=== PATIENT | male | born 1945 | race Caucasian/White ===

== ENCOUNTER → 2016-10-10 | Outpatient (CLI) | payer MEDICARE, OTHER ==
[~2016-10-10] MED LIST: ACET-461 PO; ACYC800T PO; ALFU10TA11 PO; ALLO300T2 PO; ALLP300T; ALLP300T PO; ALPR.25T PO; AML5T; AMLO10TA2 PO; AMLO10TA82 PO; ANTI14DR4 EACH EAR; BETH25TA PO; BETH25TA11 PO; BISA10SU12 PR; CALC625T29 PO; CARTEOLOL 1%; CEFD300C PO; CITA20TA7 PO; CPR250T; DIPH25TA27 PO; ETOD400T2 PO; FINA5TAB6 PO; HCT25T; HYDR25TA4 PO; HYDR50TA3 PO; IBUP-30 PO; LACT20SO2 PO; LINA290C PO; LORCET PO; LOSA50TA36 PO; MAGN-47 PO; NA P133E22 RC; NITR-65 PO; OMG1KC PO; OXYC-465 PO; POLY17PO23 PO; POLY1DRO2 OD; POTA10TA17 PO; POTASSIUM CIT; POTASSIUM CITRAT PO; PREG50CA2 PO; PROP10DR9 OU; SENN-20 PO; SODIUM CHLORIDE OU; TAMS0.4C2 PO; TIZA4TAB3 PO; TRAM50TA2 PO; [UNRECOGNIZED DRUG - CODE] OS; [UNRECOGNIZED DRUG - CODE] OS
--- OUTSIDE RECORDS SUMMARY | 2016-10-10 08:12 | XMS REPORT | Continuity of Care Document ---
Author Author [facility] Organization [facility] Address Unknown Phone Unavailable Care Team Providers Care Quarter Supervisor Name Role Phone CarynlizetRohit donahue PCP [phone] Source Comments Some departments are not documenting in the electronic medical record. If you do not see the information that you expected, contact Release of Information in the Health Information Management department at [phone] for further assistance in locating additional records.[facility] Active Allergies and Adverse Reactions Allergen Noted Date Severity Reactions Comments Ciprofloxacin 10/31/2013 MUSCLE PAIN Penicillins 10/31/2013 UNKNOWN Current Medications Prescription Sig. Disp. Refills Start End Date Status Date carteolol(+) (OCUPRESS) 1 Place 1 Drop into or Active % ophthalmic solution around eye(s) twice daily. amLODIPine (NORVASC) 10 Take 10 mg by mouth Active mg tablet daily. finasteride (PROSCAR) 5 Take 5 mg by mouth daily. Active mg tablet hydrochlorothiazide Take 25 mg by mouth Active (HYDRODIURIL) 25 mg daily. tablet allopurinol (ZYLOPRIM) Take 300 mg by mouth Active 300 mg tablet daily. other medication 1 Dose. potassium citrate Active 1080meq tid DOCOSAHEXANOIC ACID/EPA Take by mouth. Active (FISH OIL PO) sodium chloride(+) Place 1 Drop into or Active (BARBARA-5) 5 % ophthalmic around eye(s) every 3 solution hours. aspirin EC 81 mg tablet Take 81 mg by mouth Active daily. Active Problems Problem Noted Date Hypertension 10/31/2013 Constipation 10/31/2013 Social History Tobacco Use Types Packs/Day Years Used Date Never Smoker Alcohol Use Drinks/Week oz/Week Comments Yes Last Filed Vital Signs Vital Sign Reading Time Taken Blood Pressure 124/80 10/31/2013 1:27 PM CDT Pulse 65 10/31/2013 1:27 PM CDT Temperature 36.8 C (98.3 F) 10/31/2013 1:27 PM CDT Respiratory Rate 16 10/31/2013 1:27 PM CDT Height 1.88 m (6' 2") 10/31/2013 1:27 PM CDT Weight 99.156 kg (218 lb 9.6 oz) 10/31/2013 1:27 PM CDT Body Mass Index 28.05 10/31/2013 1:27 PM CDT Oxygen Saturation - - Plan of Care Health Maintenance Due Date Last Done Comments Physical (Comprehensive) 1952 Exam Pertussis Vaccine 1957 Tetanus Vaccine 11/12/1963 Colorectal Cancer 1996 Screening Shingles Vaccine 2006 Prevnar/Pneumovax (#1) 11/12/2011 Influenza Vaccine 03/31/2016 Results from Last 3 Months Not on file
--- NOTE | 2016-10-10 09:49 | Diagnostic Imaging Report ---
PROCEDURE: CT lumbar spine without contrast. TECHNIQUE: Multiple contiguous axial images were obtained through the lumbar spine without the use of intravenous contrast. Sagittal and coronal reformations were then performed. INDICATION: History of lumbar fusion. Bilateral lower extremity numbness. Left lower extremity weakness. Low back pain. COMPARISON: MRI lumbar spine without and with IV contrast 03/14/2016. Lumbar spine radiographs 03/18/2016. FINDINGS: There is grade 1 retrolisthesis of L2 on L3, L3 on L4 and L4 on L5. There is grade 1 anterolisthesis of L5 on S1. Alignment is unchanged since the prior exam. Vertebral body heights are maintained. No fractures. Moderate to advanced degenerative endplate changes at L1-L4, including multiple Schmorl's nodes, have not appreciably changed since the prior MRI exam. There are postoperative findings of bilateral mitch and pedicle screw fixation with interbody devices and laminectomies at L4-S1. The right L4 pedicle screw is parapedicular. Hardware components appear intact. No evidence of loosening. Arterial calcifications including aortic. The visualized paravertebral soft tissues are otherwise unremarkable. L1-L2: No substantial spinal canal narrowing. Disc space height loss and facet arthropathy contribute to moderate bilateral neural foraminal narrowing. L2-L3: The retrolisthesis and posterior disc osteophyte complex results in at least mild spinal canal narrowing on this noncontrast exam. Disc space height loss and facet arthropathy contribute to advanced right and moderate left neural foraminal narrowing. L3-L4: The retrolisthesis, ligamentous hypertrophy and posterior disc osteophyte complex results in at least moderate spinal canal narrowing on this noncontrast exam. Disc space height loss and facet arthropathy result in advanced right and moderate left neural foraminal narrowing. L4-L5: The spinal canal is decompressed well. Disc space height loss and facet arthropathy contribute to advanced right and moderate left neural foraminal narrowing. L5-S1: The spinal canal is decompressed well. Disc space height loss and facet arthropathy contribute to moderate bilateral neural foraminal narrowing. IMPRESSION: 1. Interval postoperative changes of bilateral mitch and pedicle screw fixation with interbody devices and laminectomies at L4-S1. No evidence of hardware failure. Stable lumbar spine alignment. 2. Spondylotic changes result in at least mild to moderate spinal canal narrowing at L2-L3 and L3-L4 on this noncontrast exam. This could be better evaluated with MRI or CT myelogram. 3. Multilevel moderate and advanced neural foraminal narrowing detailed above. Dictated by: Dictated on workstation # [id number]
== END ==
LOC: RAD 08:09
PROVIDERS: ATTEND Orthopaedic Surgery Orthopaedic Surgery of the Spine
DX: Z98.1 Arthrodesis status (principal)
CPT/HCPCS: 72131

== ENCOUNTER → 2017-04-10 | Outpatient (CLI) | payer MEDICARE, OTHER ==
--- NOTE | 2017-04-10 13:27 | Diagnostic Imaging Report ---
PROCEDURE: CT lumbar spine without contrast. TECHNIQUE: Multiple contiguous axial images were obtained through the lumbar spine without the use of intravenous contrast. Sagittal and coronal reformations were then performed. INDICATION: Surveillance imaging status post discectomy and posterior decompression of L4-L5 and L5-S1. COMPARISON: 10/10/2016. FINDINGS: Surgical changes from discectomies of L4-L5 and L5-S1. The interbody bone cages are in appropriate position. Early interosseous incorporation of the bone graft material with the adjacent vertebral bodies is noted along the posterior aspect of the cages at both levels. Posterior instrumented fusion utilizing paired transpedicular screws and vertical spanning rods from L4-S1. Hardware is intact, and there is no evidence of loosening. Laminectomy of L5 is unchanged. Increased osseous incorporation of the bone graft along the right posterior elements. However, the new hypertrophic incorporated bone does not narrow the spinal canal or neural foramen. Vertebral bodies are normal in height without fracture. Multilevel degenerative disc disease in the upper lumbar spine is unchanged. This remains greatest at L2-L3. Large Schmorl's node involving the superior endplate of L1 is also unchanged. By non-myelogram imaging, there is no evidence of new high-grade spinal stenosis or foraminal narrowing. SI joints are stable with mild degenerative changes. No abnormality of the paravertebral musculature. Atherosclerotic calcifications of the aorta are noted. IMPRESSION: 1. Early osseous incorporation of the interbody bone graft at L4-L5 and L5-S1. 2. No hardware complication of the posterior instrumented fixation from L4-S1. Dictated by: Dictated on workstation # [id number]
== END ==
LOC: RAD 09:20
PROVIDERS: ATTEND Orthopaedic Surgery Orthopaedic Surgery of the Spine
DX: Z98.1 Arthrodesis status (principal)
CPT/HCPCS: 72131

== ENCOUNTER → 2018-10-16 | Outpatient (CLI) | payer MEDICARE, OTHER ==
[~2018-10-16] MED LIST changes: -AMLO10TA2 PO; +AMLO10TA7 PO; +CART5DRO OS; -CITA20TA7 PO; +CITA20TA9 PO; -LOSA50TA36 PO; +LOSA50TA63 PO; -POLY17PO23 PO; +POLY17PO31 PO; -[UNRECOGNIZED DRUG - CODE] OS
--- NOTE | 2018-10-16 08:49 | Diagnostic Imaging Report ---
PROCEDURE: MRI lumbar spine. TECHNIQUE: Multiplanar, multisequence MRI of the lumbar spine was performed without contrast. INDICATION: Back pain. Comparison made with prior examination 03/14/2016. FINDINGS: There are postsurgical changes of posterior lumbar instrumentation from L4 through S1 with bilateral pedicle screws and rods. Intervertebral disc spaces are seen in both the L4-L5 and L5-S1 disc space. The lumbar vertebral body heights are well-maintained. There is no spondylolysis or spondylolisthesis. No fractures are identified. Conus medullaris is seen at L1 is normal in appearance. T12-L1 disc is unremarkable. At L1-L2, there is loss of disc height and signal intensity. There is broad-based annular bulging facet disease and thickening of ligament flavum. There is mild central spinal stenosis with encroachment up on the lateral recess bilaterally right greater than left. There is moderate right and mild left neural foramen encroachment. At L2-L3, there is loss of disc height and signal intensity. There are degenerative changes in the endplates. There is broad-based annular bulging more prominent on the left paramedian distribution. There is facet disease and thickening of the ligamentum flavum. There is qzzgksqu-yw-vjnvjn central spinal stenosis with severe encroachment up on left lateral recess. There is moderate bilateral neural foramen encroachment. At L3-L4, there is broad-based annular bulging and facet disease and thickening of ligament flavum. There are Modic changes in the endplates. There is facet disease and thickening of ligament flavum. There is adtkchvk-wk-akiqjk central spinal stenosis with encroachment up on the lateral recess bilaterally left greater than right. There is moderate bilateral neural foramen encroachment. At L4-L5, the spinal canal is adequately decompressed. There are Modic changes in the endplates. There is persistent mild right neural foraminal encroachment. At L5-S1, spinal canal is decompressed. There are Modic changes in the endplates. There is persistent mild bilateral neural foramen encroachment. Abdominal aorta is nonaneurysmal. There are bilateral renal cysts. IMPRESSION: Extensive lumbar spondylosis and multilevel degenerative disc disease as detailed above. Additionally, there are post surgical changes and L4 through S1 fusion. Dictated by: Dictated on workstation # [id number]
== END ==
LOC: RAD 07:42
PROVIDERS: ATTEND Physician Assistant
DX: M48.061 Spinal stenosis, lumbar region without neurogenic claudication (principal); M51.26 Other intervertebral disc displacement, lumbar region; M47.816 Spondylosis without myelopathy or radiculopathy, lumbar region; M47.817 Spondylosis without myelopathy or radiculopathy, lumbosacral region; M99.73 Connective tissue and disc stenosis of intervertebral foramina of lumbar region; Z98.1 Arthrodesis status
CPT/HCPCS: 72148

== ENCOUNTER → 2020-03-12 | Outpatient (CLI) | payer MEDICARE, OTHER ==
[~2020-03-12] VITALS: Ht 187 cm; Wt 100.0 kg
[~2020-03-12] MED LIST changes: -ALFU10TA11 PO; +ALFU10TA12 PO; +REGADENOSON 0.4 MG/5 ML SYR (LEXISCAN) IV ONE; -TIZA4TAB3 PO; +TIZA4TAB4 PO
[2020-03-12] MEDS: CATHETER FLUSH 10 ML SYR IV PRN ×2 (08:21→09:17)
[2020-03-12 09:16] VITALS: BP 126/70
--- NOTE | 2020-03-12 17:36 | Cardiology Stress Test Report ---
Stress Test Report Type of NM Stress Test: Test Type: LEXISCAN 0.4MG/5ML Date of Procedure/Referring: Date of Procedure: Mar 12, 2020 PCP Enedina Francis Aprn Admitting Physician Rohit Aj MD Indications: Chest pain Baseline Heart Rate: 50 Baseline Blood Pressure: Blood Pressure Systolic: 126 Blood Pressure Diastolic: 70 Baseline EKG: Baseline EKG: Sinus rhythm Summary & Conclusion: Summary: The patient was brought to the stress lab after informed consent was taken. Stress test was performed according to the Lexiscan protocol. 0.4 mg of IV Lexiscan was given. Low-grade exercise was performed. Baseline EKG showed sinus rhythm at 50 BPM. Initial blood pressure was 158/77 mmHg. Maximum heart rate was 64 bpm and blood pressure 144/74 mmHg. Patient did not have any chest pain, arrhythmias or ST segment changes during the stress test. 10.95 mCi of Myoview were given for rest imaging and 32.7 mCi of Myoview given for stress imaging. Transient ischemic dilatation score 1.12, EF 63 percent. Normal wall motion. Normal myocardial perfusion imaging during rest and stress. Conclusion: Pharmacological stress test was negative for ischemia. Normal LV function with no wall motion abnormalities. Normal myocardial perfusion imaging during rest and stress. Kevin HOPPER MD Mar 12, 2020 17:35
== END ==
LOC: CARD 07:58
PROVIDERS: ATTEND Nurse Practitioner Family
DX: R07.89 Other chest pain (principal)
CPT/HCPCS: 78452; 93017; A9502

== ENCOUNTER → 2021-01-06 | Outpatient (CLI) | payer MEDICARE, OTHER ==
[~2021-01-06] MED LIST changes: +AMLO-251 PO; -AMLO10TA7 PO; +GADOBUTROL 10 MMOL/10 ML (GADAVIST) VIAL IV ONE; -OXYC-465 PO; +OXYC-556 PO; -POLY17PO31 PO; +POLY17PO54 PO; -REGADENOSON 0.4 MG/5 ML SYR (LEXISCAN) IV ONE
--- NOTE | 2021-01-06 19:02 | Diagnostic Imaging Report ---
PROCEDURE: MR imaging of the brain with and without contrast. TECHNIQUE: Multiplanar, multisequence MR imaging of the brain was performed with and without contrast. INDICATION: Headaches There are no prior studies available for comparison. There is no mass, shift of the midline or hemorrhage to suggest an acute intracranial abnormality. There is no abnormal signal arising from the brain on the diffusion series to indicate an area of acute ischemia either. Furthermore, there is no abnormal enhancement on the postcontrast sequence to suggest neoplastic or infectious process. The ventricles are not abnormally dilated. There are few tiny areas of slight increased signal in the periventricular white matter bilaterally on the FLAIR series. These are nonspecific but may be related to encephalomalacia from microvascular ischemia. There is also mild cortical atrophy. The sella is not enlarged and the expected carotid flow voids are evident bilaterally. There is no acute abnormality of the orbits. However, the lens of the left globe is not visualized. There is also a vague area of slightly diminished signal within the vitreous of the left globe on the T2 propeller series. This is of uncertain etiology. If there is clinical concern regarding a retinal detachment, then correlation with patient's ophthalmologic exam would be recommended. The sinuses are generally clear although there is a 15 mm retention cyst in the floor of the left maxillary antrum. The 7th and 8th nerve complexes are unremarkable. IMPRESSION: 1. There is no evidence for an acute intracranial abnormality. In particular, there is no sign of an area of acute ischemia on the diffusion series. 2. There is no abnormal enhancement on the postcontrast series to suggest a neoplastic or infectious process. 3. The lens of the left globe is not visualized. The vague area of altered signal within the vitreous of the left globe is of uncertain etiology. Recommendations as above. Dictated by: Dictated on workstation # [id number]
== END ==
LOC: RAD 14:45
DX: R41.82 Altered mental status, unspecified (principal); R51.9 Headache, unspecified
CPT/HCPCS: 70553

== ENCOUNTER 2021-01-15 13:39 | Emergency (ER) | payer MEDICARE, OTHER ==
[~2021-01-15] VITALS: Ht 180 cm; Wt 90.0 kg
[~2021-01-15 13:39] MED LIST changes: +CART5DRO OP; +DOCU-163 PO; +FLUT9.9S NS; -GADOBUTROL 10 MMOL/10 ML (GADAVIST) VIAL IV ONE; +HYDR28.480 TP; +LORA-877 PO; +MAGN400O7 PO; +MECL-149 PO; +NAPR-1070 PO; +OMEG-158 PO; +ONDA8TAB13 PO; +POLY17PO6 PO; +ROSU10TA28 PO; +SILD100T67 PO; +TMSL.4C PO
--- NOTE | 2021-01-15 14:37 | Diagnostic Imaging Report ---
PATIENT HISTORY: SOA. TECHNIQUE: Single frontal view of the chest. COMPARISON: 04/16/2007 FINDINGS: The lung volumes are normal. No focal consolidation is seen. No large pleural effusion or pneumothorax is seen. The cardiomediastinal silhouette is normal in size and contour. No acute osseous abnormality is seen. There are degenerative changes in the AC joints bilaterally IMPRESSION: No acute pulmonary abnormality seen. Dictated by: Dictated on workstation # [id number]
[2021-01-15 14:42] LABS: MAGNESIUM 2.3 MG/DL (1.6-2.4)
[2021-01-15 15:02] LABS: TSH (THYROID ANALYZER) 0.87 UIU/ML (0.35-4.94)
--- NOTE | 2021-01-15 16:06 | ED General ---
General Chief Complaint: Dizziness/Syncope Stated Complaint: DIZZINESS/ WEAKNESS Nursing Triage Note: THE PT IS AMBULATORY TO THE ROOM WITHOUT DIFFICULTY. NO DISTRESS IS SEEN ON ARRIVAL. LOC IS NORMAL FOR THE PT. THE PT C/O OF WEAKNESS AND DIZZINESS. Nursing Sepsis Screen: No Definite Risk Source of Information: Patient, Old Records Exam Limitations: No Limitations History of Present Illness Date Seen by Provider: Jan 15, 2021 Time Seen by Provider: 13:43 Initial Comments This 75-year-old gentleman was referred to the emergency room from [facility] where he was found to have an abnormal EKG with a heart rate in the 40s. Patient has been feeling weak and lightheaded with increasing intensity over the last 5 to 7 days. He generally feels pretty well lying down but has worsening of symptoms when he gets up, especially if he starts exerting himself. He denies any chest pain or cough. He does have some shortness of breath. No fever. He did note a recent change in taste. He has lost about 25 pounds in the last couple of months. He states a feeling of dizziness described as both a spinning sensation and lightheadedness over the past 3 weeks. He has had both Covid vaccinations. He was noted to have lower blood pressures at urgent care with reported blood pressures of 97/70 at home and 114/80 at urgent care. Heart rate was in the 45-50 range. He received about 1.5 L in fluid boluses at urgent care. He states this did not really help him feel better but it did make him urinate more. Patient reports his blood pressures have been lower in the clinic and his amlodipine dose was therefore halved. Dr. Melgoza is his primary care provider. MRI of the brain did not show any abnormalities to explain his symptoms. Patient was recently treated with steroids and antibiotics for kishor pected inner ear infection. He denies any recent alcohol use or any drug use. Labs performed at urgent care were notable for creatinine of 1.3, BUN of 29, and GFR 55. Allergies and Home Medications Allergies Coded Allergies: Penicillins (Verified Allergy, Unknown, 04/25/07) ciprofloxacin (Unverified Allergy, Unknown, 03/14/16) ciprofloxacin HCl (Unverified Allergy, Unknown, 03/14/16) Home Medications Alfuzosin HCl 10 Mg Tab.er.24h, 10 MG PO DAILY@1800 Prescribed by: NAMAN AREVALO on 03/25/16 1053 Allopurinol 300 Mg Tablet, 300 MG PO DAILY, (Reported) Amlodipine Besylate 10 Mg Tablet, 10 MG PO DAILY, (Reported) Calcium Polycarbophil 625 Mg Tablet, 625 MG PO BID, (Reported) Carteolol HCl 5 Ml Drops, 5 ML OP BID, (Reported) Docusate Sodium 100 Mg Capsule, 100 MG PO DAILY PRN, (Reported) Finasteride 5 Mg Tablet, 5 MG PO DAILY, (Reported) Fluticasone Propionate 9.9 Ml [place].susp, 1 SPRAY NS DAILY, (Reported) 1 SPRAY EACH NARE DAILY Hydrochlorothiazide 25 Mg Tablet, 25 MG PO DAILY, (Reported) Hydrocortisone/Aloe Vera 28.4 Gm Cream..g., 2.5 % TP DAILY PRN for RASH, (Reported) Loratadine/Pseudoephedrine 1 Each Tab.er.24h, 1 EACH PO DAILY, (Reported) Magnesium Hydroxide 400 Mg/5 Ml Oral.susp, 400 MG PO for CONSTIPATION, (Reported) Meclizine HCl 25 Mg Tablet, 25 MG PO TID, (Reported) Naproxen Sodium 550 Mg Tablet, 550 MG PO BID, (Reported) Rarden 3 Polyunsat Fatty Acids 1,000 Mg Cap, 1,000 MG PO TID, (Reported) Rarden-3/Dha/Epa/Fish Oil 1 Each Capsule.dr, 1 EACH PO TID, (Reported) Ondansetron 8 Mg Tab.rapdis, 8 MG PO for Q 6-8 HRS, (Reported) Polyethylene Glycol 3350 17 Gm Powd.pack, 17 GM PO DAILY PRN for CONSTIPATION, (Reported) Potassium Citrate 10 Meq Tablet.er, 10 MEQ PO TID, (Reported) Propylene Glycol 10 Ml Drops, 1-2 DROPS OU Q4H PRN for DRY EYES, (Reported) Rosuvastatin Calcium 10 Mg Tablet, 10 MG PO DAILY, (Reported) Sildenafil Citrate 100 Mg Tablet, 100 MG PO 1-2 HOURS PRN PRN for PRE SEX , (Reported) Tamsulosin HCl 0.4 Mg Cap, 0.4 MG PO DAILY, (Reported) Patient Home Medication List Home Medication List Reviewed: Yes Review of Systems Review of Systems Constitutional: see HPI EENTM: no symptoms reported Respiratory: see HPI Cardiovascular: see HPI Gastrointestinal: no symptoms reported Genitourinary: no symptoms reported Musculoskeletal: no symptoms reported Skin: no symptoms reported Psychiatric/Neurological: No Symptoms Reported Hematologic/Lymphatic: No Symptoms Reported Immunological/Allergic: no symptoms reported Past Jggbexq-Szjbwk-Dhikyu Hx Past Med/Social Hx: Reviewed Nursing Past Med/Soc Hx Patient Social History Recent Infectious Disease Expo: No Recent Hopitalizations: No Immunizations Up To Date Tetanus Booster (TDap): Less than 5yrs Date of Influenza Vaccine: Apr 14, 2020 Seasonal Allergies Seasonal Allergies: No Past Medical History Surgeries: Yes (S/P L4-S1 SACRAL FUSION, ACHILLES TENDON, LEFT EYE X3, NERVE REMOVED L FOOT) Tonsillectomy, Vasectomy Respiratory: No Cardiac: Yes (Rheumatic fever as a child) High Cholesterol, Hypertension Neurological: No Reproductive Disorders: No Sexually Transmitted Disease: No Genitourinary: Yes Prostate Problems, Kidney Stones Gastrointestinal: Yes Chronic Constipation Musculoskeletal: Yes (Spinal stenosis) Endocrine: No Cancer: No Psychosocial: No Integumentary: No Herpes Blood Disorders: No Adverse Reaction/Blood Tranf: No Family Medical History Cancer 03 FATHER, Onset:92 Family history: Arthritis 03 FATHER Family history: Diabetes mellitus 03 FATHER Family history: Hypertension 03 FATHER Physical Exam Vital Signs Vital Signs - First Documented 01/15/21 01/15/21 13:57 19:14 Temp 36.5 Pulse 54 Resp 16 B/P (MAP) 200/90 (126) Pulse Ox 98 Capillary Refill : Less Than 3 Seconds Height, Weight, BMI Height: 6'2.00" Weight: 210lbs. 9.0oz. 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 Norm as Tested Skin: Normal Color, Warm/Dry Progress/Results/Core Measures Suspected Sepsis Recent Fever Within 48 Hours: No Infection Criteria Present: None New/Unexplained Altered Menta: No Sepsis Screen: No Definite Risk SIRS Temperature: Pulse: 54 Respiratory Rate: 16 Blood Pressure 200 /90 Mean: 126 Results/Orders Lab Results Laboratory Tests Test 01/15/21 14:20 01/15/21 16:25 Range/Units Magnesium Level 2.3 1.6-2.4 MG/DL Troponin I < 0.028 <0.028 NG/ML B-Type Natriuretic Peptide 73.3 <100.0 PG/ML TSH [place] Testing 0.87 0.35-4.94 UIU/ML Influenza Type A (RT-PCR) Not Detected Not Detecte Influenza Type B (RT-PCR) Not Detected Not Detecte SARS-CoV-2 RNA (RT-PCR) Not Detected Not Detecte Urine Color YELLOW Urine Clarity CLEAR Urine pH 7.0 5-9 Urine Specific [place] 1.015 L 1.016-1.022 Urine Protein NEGATIVE NEGATIVE Urine Glucose (UA) NEGATIVE NEGATIVE Urine Ketones TRACE H NEGATIVE Urine Nitrite NEGATIVE NEGATIVE Urine Bilirubin NEGATIVE NEGATIVE Urine Urobilinogen 0.2 < = 1.0 MG/DL Urine Leukocyte Esterase NEGATIVE NEGATIVE Urine RBC (Auto) NEGATIVE NEGATIVE Urine RBC NONE /HPF Urine WBC NONE /HPF Urine Crystals NONE /LPF Urine Bacteria NEGATIVE /HPF Urine Casts NONE /LPF Urine Mucus NEGATIVE /LPF Urine Culture Indicated NO My Orders Orders - JULES GROVER MD BNP (01/15/21 14:07) Magnesium (01/15/21 14:07) Thyroid Analyzer (01/15/21 14:07) Troponin I (01/15/21 14:07) Chest 1 View, Ap/Pa Only (01/15/21 14:07) Covid 19 Inhouse Test (01/15/21 14:07) Influenza A And B By Pcr (01/15/21 14:07) Ekg Tracing (01/15/21 14:07) Monitor-Rhythm Ecg Trace Only (01/15/21 14:07) Ct Angio Head/Neck (01/15/21 16:03) Ua Culture If Indicated (01/15/21 16:22) Iohexol Injection (Omnipaque 350 Mg/Ml 1 (01/15/21 16:45) Received Contrast (Hold Metformin- Contr (01/15/21 16:45) Ns (Ivpb) (Sodium Chloride 0.9% Ivpb Bag (01/15/21 16:45) Lactated Ringers (Lr 1000 Ml Iv Solution (01/15/21 18:00) Medications Given in ED Current Medications Medications Dose Ordered Sig/Caryn Route Start Time Stop Time Status Last Admin Dose Admin Iohexol 100 ml ONCE ONCE IV 01/15/21 16:45 01/15/21 16:46 DC 01/15/21 17:08 75 ML Lactated Ringer's 1,000 ml @ 0 mls/hr Q0M ONCE IV 01/15/21 18:00 01/15/21 18:01 DC 01/15/21 18:12 1,000 MLS/HR Sodium Chloride 100 ml ONCE ONCE IV 01/15/21 16:45 01/15/21 16:46 DC 01/15/21 17:09 80 ML Vital Signs/I&O 01/15/21 01/15/21 01/15/21 13:57 19:14 19:31 Temp 36.5 36.6 Pulse 54 64 65 Resp 16 16 16 B/P (MAP) 200/90 (126) 126/72 126/60 Pulse Ox 98 98 Capillary Refill : Less Than 3 Seconds Blood Pressure Mean: 126 Progress Note : Progress Note During my assessment orthostatic blood pressures were taken as follows: Lying 178/78, heart rate 50 sitting 139/76, heart rate 63 Standing 123/67, heart rate 77 These measurements note a significant orthostatic change. This was present even despite receiving the fluid bolus at urgent care. Work-up was pursued which was largely unremarkable. Heart rate varied from the upper 40s through the 70s. He seemed to have an inappropriate lack of response with heart rate during sitting or standing. Blood pressures on arrival were 196/110 and 199/90. Patient admitted to increased symptoms with sitting up or standing. He did not have any chest pain. COVID-19 and flu testing were negative. CT angiogram of the head and neck was obtained to rule out stenosis of the vessels of the neck or head. No significant abnormalities were identified. I reviewed medications with him in detail and looked up adverse reactions of his active medications. After this review I advised him to discontinue Flomax through the weekend as a trial. Before departure patient received another liter of IV fluid. This made him urinate a significant amount but did not improve his symptoms or his standing blood pressure. Case was discussed with Dr. Stratton. Patient feels comfortable returning home and continuing work-up as an outpatient. See discharge instructions. ECG Initial ECG Impression Date: Jan 15, 2021 Initial ECG Impression Time: 14:14 Initial ECG Rate: 48 Initial ECG Rhythm: S.Brandon Comment Sinus bradycardia with no ST elevation or depression. No abnormal intervals or axis deviation. Diagnostic Imaging Diagonstic Imaging: CT Plain Films/CT/US/NM/MRI: other (Angiogram head and neck) Comments NAME: JANENE LEGGETT [facility] REC#: [id number] PT STATUS: REG ER : 1945 PHYSICIAN: JULES GROVER MD ADMIT DATE: 01/15/21/ER Signed Date of Exam:01/15/21 CT ANGIO HEAD/NECK PROCEDURE: CT angiography of the head and CT angiography of the neck with and without contrast. TECHNIQUE: Contiguous noncontrast images were obtained from the skull base through the vertex. After intravenous contrast administration, helical CT angiography of the neck was performed. Source data was reformatted into 3D MIP projections. Delayed post contrast acquisition was also obtained. Auto Exposure Controls were utilized during the CT exam to meet ALARA standards for radiation dose reduction. INDICATION: Lightheaded. Dizziness. COMPARISON: MRI brain without and with IV contrast from 01/06/2021. FINDINGS: Noncontrast head CT demonstrates no intracranial hemorrhage, mass effect, hydrocephalus, or extra-axial fluid collections. No CT evidence of a territorial infarction. No abnormal intracranial enhancement on delayed post contrast imaging. CTA demonstrates conventional aortic arch. The basilar, bilateral vertebral, common carotid, internal carotid, anterior cerebral, middle cerebral, and posterior cerebral arteries are widely patent without evidence of aneurysm or dissection. The dural venous sinuses are normally opacified. No acute osseous findings. Mild spondylotic changes in the cervical spine. Mild mucosal thickening in the left maxillary sinus. The mastoids are unremarkable. Paravertebral soft tissues are unremarkable. Lung apices are clear. IMPRESSION: 1. No acute intracranial CT findings. 2. No high-grade narrowing, aneurysm, or dissection involving the major arteries in the head and neck. No large vessel occlusion. Dictated by: Dictated on workstation # [id number] Dict: 01/15/21 1704 Trans: 01/15/21 1736 [id number] Interpreted by: JESSICA ARELLANO MD Electronically signed by: JESSICA ARELLANO MD 01/15/21 1736 Reviewed: Reviewed by Me Diagonstic Imaging: Xray Plain Films/CT/US/NM/MRI: chest Comments NAME: JANENE LEGGETT [facility] REC#: [id number] PT STATUS: REG ER : 1945 PHYSICIAN: JULES GROVER MD ADMIT DATE: 01/15/21/ER Signed Date of Exam:01/15/21 CHEST 1 VIEW, AP/PA ONLY PATIENT HISTORY: SOA. TECHNIQUE: Single frontal view of the chest. COMPARISON: 04/16/2007 FINDINGS: The lung volumes are normal. No focal consolidation is seen. No large pleural effusion or pneumothorax is seen. The cardiomediastinal silhouette is normal in size and contour. No acute osseous abnormality is seen. There are degenerative changes in the AC joints bilaterally IMPRESSION: No acute pulmonary abnormality seen. Dictated by: Dictated on workstation # [id number] Dict: 01/15/21 1431 Trans: 01/15/21 1642 [facility] [id number] Interpreted by: SHANE STORM MD Electronically signed by: SHANE STORM MD 01/15/21 1642 Departure Impression Primary Impression: Bradycardia Additional Impression: Orthostatic headache Disposition: 01 HOME, SELF-CARE Condition: Stable Departure-Patient Inst. Decision time for Depature: 19:20 Referrals: ROBERT MORGAN MD, RICK D MD (PCP/Family) Primary Care Physician Patient Instructions: Orthostatic Hypotension Add. Discharge Instructions: Follow-up with Dr. Morgan or the rolling mill plugger of your choice as soon as possible. Please call Monday to make an appointment. In the meantime, continue your medications, but consider stopping Flomax through the weekend. It is possible you are experiencing an adverse reaction to one of your medications. Get up and walk very carefully to prevent falls. Consider using an assistive device such as a cane or walker to give you support. Call with questions or concerns. Return to the ER if you have worsening symptoms. All discharge instructions reviewed with patient and/or family. Voiced u nderstanding. Copy Copies To 1: MOOK MELGOZA MD Copies To 2: ROBERT MORGAN MD; RYAN CARRANZA MD, JOSHUA T MD Jan 15, 2021 16:06
[2021-01-15 16:35] LABS: BILIRUBIN,URINE NEGATIVE (NEGATIVE); CLARITY,URINE CLEAR; COLOR,URINE YELLOW; GLUCOSE, URINE (UA) NEGATIVE (NEGATIVE); KETONES,URINE TRACE (NEGATIVE); LEUKOCYTE ESTERASE ,URINE NEGATIVE (NEGATIVE); NITRITE,URINE NEGATIVE (NEGATIVE); PROTEIN,URINE NEGATIVE (NEGATIVE)
[2021-01-15 16:38] LABS: BACTERIA,URINE NEGATIVE /HPF
[2021-01-15] MEDS ORDERED: HOLD METFORMIN - RECEIVED CONTRAST 20 ML VIAL IV SCH (16:45)
[2021-01-15] MEDS ORDERED: NS 100 ML (IVPB) BAG IV ONE (16:45)
[2021-01-15] MEDS ORDERED: IOHEXOL 350 MG/ML 100 ML (OMNIPAQUE 350) VIAL IV ONE (16:45)
--- NOTE | 2021-01-15 17:17 | Diagnostic Imaging Report ---
PROCEDURE: CT angiography of the head and CT angiography of the neck with and without contrast. TECHNIQUE: Contiguous noncontrast images were obtained from the skull base through the vertex. After intravenous contrast administration, helical CT angiography of the neck was performed. Source data was reformatted into 3D MIP projections. Delayed post contrast acquisition was also obtained. Auto Exposure Controls were utilized during the CT exam to meet ALARA standards for radiation dose reduction. INDICATION: Lightheaded. Dizziness. COMPARISON: MRI brain without and with IV contrast from 01/06/2021. FINDINGS: Noncontrast head CT demonstrates no intracranial hemorrhage, mass effect, hydrocephalus, or extra-axial fluid collections. No CT evidence of a territorial infarction. No abnormal intracranial enhancement on delayed post contrast imaging. CTA demonstrates conventional aortic arch. The basilar, bilateral vertebral, common carotid, internal carotid, anterior cerebral, middle cerebral, and posterior cerebral arteries are widely patent without evidence of aneurysm or dissection. The dural venous sinuses are normally opacified. No acute osseous findings. Mild spondylotic changes in the cervical spine. Mild mucosal thickening in the left maxillary sinus. The mastoids are unremarkable. Paravertebral soft tissues are unremarkable. Lung apices are clear. IMPRESSION: 1. No acute intracranial CT findings. 2. No high-grade narrowing, aneurysm, or dissection involving the major arteries in the head and neck. No large vessel occlusion. Dictated by: Dictated on workstation # [id number]
[2021-01-15] MEDS ORDERED: LACTATED RINGERS 1,000 ML IV ONE (18:00)
[2021-01-15 19:31] VITALS: BP 126/60
== END 2021-01-15 19:33 | disposition home or self-care (01) ==
LOC: EDUNIT# 13:39 → ER 13:43
DX: R00.1 Bradycardia, unspecified (principal); R51.9 Headache, unspecified; I10 Essential (primary) hypertension; E78.00 Pure hypercholesterolemia, unspecified; Z20.822 Contact with and (suspected) exposure to COVID-19; Z79.899 Other long term (current) drug therapy
CPT/HCPCS: 36415; 70496; 70498; 71045; 81000; 83735; 83880; 84443; 84484; 87636; 93005; 93041

== ENCOUNTER 2021-01-18 05:29 | Outpatient (RCR) | payer MEDICARE, OTHER ==
[~2021-01-18] VITALS: Ht 188 cm; Wt 89.5 kg
== END 2021-01-18 08:16 | disposition home or self-care (01) ==
LOC: PREOP 05:29
PROVIDERS: ATTEND Surgery
DX: Z01.812 Encounter for preprocedural laboratory examination (principal); K59.00 Constipation, unspecified; R63.4 Abnormal weight loss; Z20.822 Contact with and (suspected) exposure to COVID-19; Z86.010 Personal history of colon polyps
CPT/HCPCS: 87635

== ENCOUNTER → 2021-01-25 | Outpatient (CLI) | payer MEDICARE, OTHER ==
[~2021-01-25] MED LIST changes: +CATHETER FLUSH 10 ML SYR IV PRN; +HOLD METFORMIN - RECEIVED CONTRAST 20 ML VIAL IV SCH; +IOHEXOL 350 MG/ML 100 ML (OMNIPAQUE 350) VIAL IV ONE; +NS 100 ML (IVPB) BAG IV ONE
--- NOTE | 2021-01-25 09:38 | Diagnostic Imaging Report ---
INDICATION: Weight loss COMPARISON: 01/15/2021. FINDINGS: Frontal and lateral views the chest demonstrate clear lungs bilaterally. The heart size is normal. There is no pneumothorax. Osseous structures are normal. IMPRESSION: No acute findings. Normal chest. Dictated by: Dictated on workstation # [id number]
--- NOTE | 2021-01-25 10:02 | Diagnostic Imaging Report ---
PROCEDURE: CT abdomen and pelvis with contrast. TECHNIQUE: Multiple contiguous axial images were obtained through the abdomen and pelvis after administration of intravenous contrast. Auto Exposure Controls were utilized during the CT exam to meet ALARA standards for radiation dose reduction. All CT scans use one or more of the following dose optimizing techniques: automated exposure control, MA and/or KvP adjustment based on patient size and exam type or iterative reconstruction. INDICATION: Dizziness and fatigue COMPARISON: 09/05/2011 Calcified granulomas are seen in the left lung base and within the spleen. No focal hepatic lesion is identified apart from occasional calcified granulomas. The gallbladder, biliary tree and pancreas are stable and unremarkable. There is no evidence of adrenal gland lesion. There are dominant parapelvic cysts within both kidneys however no hydronephrosis is identified. There is no nodes of hydroureter. No free fluid is seen within the abdomen or pelvis. The appendix has a normal appearance. There is mild atherosclerotic calcification of the abdominal aorta without evidence of pathologically enlarged abdominal or pelvic adenopathy. Partially opacified urinary bladder is unremarkable. There are advanced urinary findings in the lumbar spine with posterior fusion extending from L4 through S1. IMPRESSION: No definite acute abnormality or adverse change. Dictated by: Dictated on workstation # [id number]
== END ==
LOC: RAD 08:45
DX: F41.8 Other specified anxiety disorders (principal); R63.4 Abnormal weight loss; R42 Dizziness and giddiness
CPT/HCPCS: 71046; 74177

== ENCOUNTER 2021-01-31 03:56 | Emergency (ER) | payer MEDICARE ==
[~2021-01-31] VITALS: Ht 180 cm; Wt 90.0 kg
[~2021-01-31 03:56] MED LIST changes: -CATHETER FLUSH 10 ML SYR IV PRN; -HOLD METFORMIN - RECEIVED CONTRAST 20 ML VIAL IV SCH; -IOHEXOL 350 MG/ML 100 ML (OMNIPAQUE 350) VIAL IV ONE; -NS 100 ML (IVPB) BAG IV ONE
[2021-01-31 04:16] VITALS: BP 170/94
--- NOTE | 2021-01-31 04:29 | ED GU-Female ---
General Chief Complaint: - Urinary Stated Complaint: UNABLE TO URINATE,CONSTIPATION Nursing Triage Note: UNABLE TO VOID X12 HRS, CONSTIPATION X12 DAYS. Source: patient Exam Limitations: no limitations History of Present Illness Date Seen by Provider: Jan 31, 2021 Time Seen by Provider: 04:02 Initial Comments Patient to the ER by private conveyance with significant other and chief complaint that he is not been able to urinate for the past 12 hours. He has passed normal bowel movements. He is having increasing pressure and pain in his suprapubic region. He has prostate issues known to Dr. Carranza, urology on finasteride and Flomax. No blood thinners. Allergies and Home Medications Allergies Coded Allergies: Penicillins (Verified Allergy, Unknown, 04/25/07) ciprofloxacin (Unverified Allergy, Unknown, 03/14/16) ciprofloxacin HCl (Unverified Allergy, Unknown, 03/14/16) Home Medications Alfuzosin HCl 10 Mg Tab.er.24h, 10 MG PO DAILY@1800 Prescribed by: NAMAN AREVALO on 03/25/16 1053 Allopurinol 300 Mg Tablet, 300 MG PO DAILY, (Reported) Amlodipine Besylate 10 Mg Tablet, 10 MG PO DAILY, (Reported) Calcium Polycarbophil 625 Mg Tablet, 625 MG PO BID, (Reported) Carteolol HCl 5 Ml Drops, 5 ML OP BID, (Reported) Docusate Sodium 100 Mg Capsule, 100 MG PO DAILY PRN, (Reported) Finasteride 5 Mg Tablet, 5 MG PO DAILY, (Reported) Fluticasone Propionate 9.9 Ml [place].susp, 1 SPRAY NS DAILY, (Reported) 1 SPRAY EACH NARE DAILY Hydrochlorothiazide 25 Mg Tablet, 25 MG PO DAILY, (Reported) Hydrocortisone/Aloe Vera 28.4 Gm Cream..g., 2.5 % TP DAILY PRN for RASH, (Reported) Loratadine/Pseudoephedrine 1 Each Tab.er.24h, 1 EACH PO DAILY, (Reported) Magnesium Hydroxide 400 Mg/5 Ml Oral.susp, 400 MG PO for CONSTIPATION, (Reported) Meclizine HCl 25 Mg Tablet, 25 MG PO TID, (Reported) Naproxen Sodium 550 Mg Tablet, 550 MG PO BID, (Reported) [place] 3 Polyunsat Fatty Acids 1,000 Mg Cap, 1,000 MG PO TID, (Reported) [place]-3/Dha/Epa/Fish Oil 1 Each Capsule.dr, 1 EACH PO TID, (Reported) Ondansetron 8 Mg Tab.rapdis, 8 MG PO for Q 6-8 HRS, (Reported) Polyethylene Glycol 3350 17 Gm Powd.pack, 17 GM PO DAILY PRN for CONSTIPATION, (Reported) Potassium Citrate 10 Meq Tablet.er, 10 MEQ PO TID, (Reported) Propylene Glycol 10 Ml Drops, 1-2 DROPS OU Q4H PRN for DRY EYES, (Reported) Rosuvastatin Calcium 10 Mg Tablet, 10 MG PO DAILY, (Reported) Sildenafil Citrate 100 Mg Tablet, 100 MG PO 1-2 HOURS PRN PRN for PRE SEX , (Reported) Tamsulosin HCl 0.4 Mg Cap, 0.4 MG PO DAILY, (Reported) Patient Home Medication List Home Medication List Reviewed: Yes Review of Systems Review of Systems Constitutional: No chills, No diaphoresis EENTM: No ear discharge, No ear pain Respiratory: No cough, No short of breath Cardiovascular: No chest pain, No edema Gastrointestinal: abdominal pain; No nausea, No vomiting Genitourinary: see HPI; denies dysuria; frequency Musculoskeletal: No back pain, No joint pain All Other Systemes Reviewed Negative Unless Noted: Yes Past Yeqwkhb-Gplryp-Yfufur Hx Patient Social History Tobacco Use?: No Alcohol Use?: Yes Alcohol Frequency: Once in a while Immunizations Up To Date Tetanus Booster (TDap): Less than 5yrs Seasonal Allergies Seasonal Allergies: No Past Medical History Surgeries: Yes (S/P L4-S1 SACRAL FUSION, ACHILLES TENDON, LEFT EYE X3, NERVE REMOVED L FOOT) Tonsillectomy, Vasectomy Respiratory: No Cardiac: Yes (Rheumatic fever as a child) High Cholesterol, Hypertension Neurological: No Reproductive Disorders: No Sexually Transmitted Disease: No Genitourinary: Yes Prostate Problems, Kidney Stones Gastrointestinal: Yes Chronic Constipation Musculoskeletal: Yes (Spinal stenosis) Endocrine: No Cancer: No Psychosocial: No Integumentary: No Herpes Blood Disorders: No Adverse Reaction/Blood Tranf: No Family Medical History Cancer 03 FATHER, Onset:92 Family history: Arthritis 03 FATHER Family history: Diabetes mellitus 03 FATHER Family history: Hypertension 03 FATHER Physical Exam Vital Signs Vital Signs - First Documented 01/31/21 04:16 Temp 36.2 Pulse 67 Resp 16 B/P (MAP) 170/94 (119) Pulse Ox 96 O2 Delivery Room Air Capillary Refill : Less Than 3 Seconds Height, Weight, BMI Height: 6'2.00" Weight: 210lbs. 9.0oz. 95.052866mf; 27.00 BMI Method:Estimated General Appearance: WD/WN, mild distress HEENT: PERRL/EOMI, pharynx normal Neck: full range of motion, normal inspection Cardiovascular: normal peripheral pulses, regular rate, rhythm Respiratory: no respiratory distress, no accessory muscle use Gastrointestinal: normal bowel sounds, soft Neurologic/Psychiatric: alert, normal mood/affect, oriented x 3 Skin: normal color, warm/dry Progress/Results/Core Measures Suspected Sepsis SIRS Temperature: Pulse: 67 Respiratory Rate: 16 Blood Pressure 170 /94 Mean: 119 Results/Orders Lab Results Laboratory Tests Test 01/31/21 04:25 Range/Units Urine Color YELLOW Urine Clarity CLEAR Urine pH 7.0 5-9 Urine Specific [place] 1.015 L 1.016-1.022 Urine Protein NEGATIVE NEGATIVE Urine Glucose (UA) NEGATIVE NEGATIVE Urine Ketones NEGATIVE NEGATIVE Urine Nitrite NEGATIVE NEGATIVE Urine Bilirubin NEGATIVE NEGATIVE Urine Urobilinogen 0.2 < = 1.0 MG/DL Urine Leukocyte Esterase NEGATIVE NEGATIVE Urine RBC (Auto) NEGATIVE NEGATIVE Urine RBC RARE /HPF Urine WBC RARE /HPF Urine Squamous Epithelial Cells NONE /HPF Urine Crystals NONE /LPF Urine Bacteria TRACE /HPF Urine Casts PRESENT /LPF Urine Mucus NEGATIVE /LPF Urine Culture Indicated NO My Orders Orders - MELL,ROB J Catheter(Urinary) Insert & Ass 03,15 (01/31/21 04:29) Ua Culture If Indicated (01/31/21 04:29) Vital Signs/I&O 01/31/21 04:16 Temp 36.2 Pulse 67 Resp 16 B/P (MAP) 170/94 (119) Pulse Ox 96 O2 Delivery Room Air Capillary Refill : Less Than 3 Seconds Blood Pressure Mean: 119 Progress Note #1: Time: 04:29 Progress Note Elected to place a Ochoa catheter to decompress the bladder. Progress Note #2: Time: 05:10 Progress Note Patient is feeling much more comfortable after placement of a Ochoa catheter. Urinalysis unremarkable. Sending him to Dr. Dodge outpatient. Departure Impression Primary Impression: Urinary obstruction Disposition: 01 HOME, SELF-CARE Condition: Stable Departure-Patient Inst. Decision time for Depature: 05:13 Referrals: MOOK MELGOZA MD (PCP/Family) Primary Care Physician RYAN CARRANZA MD Patient Instructions: Urinary Obstruction (DC) Add. Discharge Instructions: Keep the skin clean with regular soap and water. Monday call Dr. Carranza, urology and request follow-up appointment. Return to the ER if you are having difficulty producing urine. All discharge instructions reviewed with patient and/or family. Voiced understanding. Copy Copies To 1: RYAN CARRANZA MD, TITUS J Jan 31, 2021 04:29
[2021-01-31 04:37] LABS: BILIRUBIN,URINE NEGATIVE (NEGATIVE); CLARITY,URINE CLEAR; COLOR,URINE YELLOW; GLUCOSE, URINE (UA) NEGATIVE (NEGATIVE); KETONES,URINE NEGATIVE (NEGATIVE); LEUKOCYTE ESTERASE ,URINE NEGATIVE (NEGATIVE); NITRITE,URINE NEGATIVE (NEGATIVE); PROTEIN,URINE NEGATIVE (NEGATIVE)
[2021-01-31 04:56] LABS: BACTERIA,URINE TRACE /HPF; RBC,URINE RARE /HPF; WBC,URINE RARE /HPF
== END 2021-01-31 05:17 | disposition home or self-care (01) ==
LOC: EDUNIT# 03:56 → ER 03:58
DX: N13.9 Obstructive and reflux uropathy, unspecified (principal); I10 Essential (primary) hypertension; E78.00 Pure hypercholesterolemia, unspecified; Z79.899 Other long term (current) drug therapy
CPT/HCPCS: 51702; 81000

== ENCOUNTER 2021-02-09 05:32 | Outpatient (CLI) | payer MEDICARE, OTHER ==
[~2021-02-09] VITALS: Ht 188 cm; Wt 89.5 kg
[2021-02-11] MEDS ORDERED: HYDR-3817 PO (11:07)
== END 2021-02-09 11:08 ==
LOC: PREOP 05:32
PROVIDERS: ATTEND Surgery
DX: Z01.812 Encounter for preprocedural laboratory examination (principal); K40.90 Unilateral inguinal hernia, without obstruction or gangrene, not specified as recurrent; Z20.822 Contact with and (suspected) exposure to COVID-19
CPT/HCPCS: 87635

== ENCOUNTER → 2021-02-10 | Outpatient (CLI) | payer MEDICARE ==
[~2021-02-10] MED LIST changes: +HYDR-3817 PO
== END ==
LOC: CARD 09:48
PROVIDERS: ATTEND Internal Medicine Cardiovascular Disease
DX: I35.1 Nonrheumatic aortic (valve) insufficiency (principal); I10 Essential (primary) hypertension; I25.10 Atherosclerotic heart disease of native coronary artery without angina pectoris
CPT/HCPCS: 93306

== ENCOUNTER 2021-02-11 10:13 | Day surgery (SDC) | payer MEDICARE, OTHER ==
[~2021-02-11] VITALS: Ht 188 cm; Wt 89.5 kg
[2021-02-11] VITALS (11 sets, daily range): BP systolic 153–197; BP diastolic 77–88
[~2021-02-11 10:13] MED LIST changes: -HYDR-3817 PO
[2021-02-11] MEDS ORDERED: LIDOCAINE/EPI 1%-1:200,000 (XYLOCAINE) 30 ML VIAL ONE (10:21)
[2021-02-11] MEDS ORDERED: CLINDAMYCIN 600 MG/50 ML IVPB 50 ML IV ONE (10:45)
[2021-02-11] MEDS: LACTATED RINGERS 1,000 ML IV PRN ×2 (10:47→14:28)
[2021-02-11 10:53] LABS: BASOPHILS % (AUTO) 1 % (0-10); EOSINOPHILS # (AUTO) 0.3 10^3/uL (0.0-0.3); EOSINOPHILS % (AUTO) 3 % (0-10); HEMATOCRIT 44 % (40-54); HEMOGLOBIN 14.8 g/dL (13.3-17.7); LYMPHOCYTES # (AUTO) 1.6 10^3/uL (1.0-4.0); LYMPHOCYTES % (AUTO) 18 % (12-44); MEAN CORPUSCULAR HEMOGLOBIN 32 pg (25-34); MEAN CORPUSCULAR HGB CONC 33 g/dL (32-36); MEAN CORPUSCULAR VOLUME 96 fL (80-99); MEAN PLATELET VOLUME 10.4 fL (9.0-12.2); MONOCYTES # (AUTO) 0.5 10^3/uL (0.0-1.0); MONOCYTES % (AUTO) 6 % (0-12); NEUTROPHILS # (AUTO) 6.4 10^3/uL (1.8-7.8); NEUTROPHILS % (AUTO) 72 % (42-75); PLATELET COUNT 203 10^3/uL (130-400); WHITE BLOOD COUNT 8.8 10^3/uL (4.3-11.0)
--- NOTE | 2021-02-11 11:06 | Progress Note-Pre Operative ---
Pre-Operative Progress Note H&P Reviewed The H&P was reviewed, patient examined and no changes noted. Date Seen by Provider: Feb 11, 2021 Time Seen by Provider: 11:00 Date H&P Reviewed: Feb 11, 2021 Time H&P Reviewed: 11:00 Pre-Operative Diagnosis: right inguinal hernia ISELA CANTOR MD Feb 11, 2021 11:06
[2021-02-11] MEDS ORDERED: HYDR-3817 PO (11:07)
--- NOTE | 2021-02-11 11:08 | Discharge Inst-Surgical ---
D/C Lap Instructions-DEVAUGHN New, Converted, or Re-Newed RX: RX on Chart Follow Up Appt in 2 weeks Activity as tolerated No driving for 24 hours No driving while on pain medications Incentive Spirometry use every 2 hours while awake Regular Diet Symptoms to Report: Fever over 101 degree F, Nausea/Vomiting Infection Signs and Symptoms to report: Increased redness, Foul odor of wound, Increased drainage Bathing instructions: May shower Operative Area Clean/Dry; Keep incision clean/dry If any problems/questions: Contact your physician or go to Emergency Room ISELA CANTOR MD Feb 11, 2021 11:08
[2021-02-11] MEDS ORDERED: oxyCODONE/APAP 5/325MG (PERCOCET 5) TABLET PO PRN (11:15)
[2021-02-11] MEDS ORDERED: morphine INJ 10 MG/ML 1ML (SYR OR VIAL) IVP PRN ×2 (11:15)
[2021-02-11] MEDS ORDERED: ACETAMINOPHEN 325 MG TABLET PO PRN (11:15)
[2021-02-11] MEDS ORDERED: ONDANSETRON 4 MG/2 ML (SDV) Z0FRAN IVP PRN ×2 (11:15→15:00)
[2021-02-11] MEDS ORDERED: proPOfol 200 MG/20 ML (DIPRIVAN) VIAL IV ONE (11:33)
[2021-02-11] MEDS ORDERED: ROCURONIUM 10 MG/ML 5 ML SYRINGE IV ONE (11:33)
[2021-02-11] MEDS ORDERED: ONDANSETRON 4 MG/2 ML (SDV) Z0FRAN ONE (11:33)
[2021-02-11] MEDS ORDERED: LIDOCAINE PF 2% 5 ML (XYLOCAINE) VIAL ONE (11:33)
[2021-02-11] MEDS ORDERED: fentaNYL INJ 100 MCG/2 ML AMP ONE (11:34)
[2021-02-11] MEDS ORDERED: MIDAZOLAM 2 MG/2 ML (VERSED) VIAL ONE (11:34)
[2021-02-11] MEDS ORDERED: GLYCOPYRROLATE 0.2 MG/ML (ROBINUL) 2 ML VIAL ONE (14:18)
[2021-02-11] MEDS ORDERED: NEOSTIGMINE 3 MG/3 ML VIAL ONE (14:18)
[2021-02-11] MEDS ORDERED: KETOROLAC 30 MG/ML VIAL ONE (14:26)
[2021-02-11] MEDS ORDERED: SEVOFLURANE (ULTANE) 15 ML INHAL SOLN ONE (14:38)
--- NOTE | 2021-02-11 14:52 | Anesthesia-General Post-Op ---
General Patient Condition Mental Status/LOC: Same as Preop Cardiovascular: Satisfactory Nausea/Vomiting: Absent Respiratory: Satisfactory Pain: Controlled Complications: Absent Post Op Complications Complications None Follow Up Care/Instructions Patient Instructions None needed. Anesthesia/Patient Condition Patient Condition Patient is doing well, no complaints, stable vital signs, no apparent adverse anesthesia problems. No complications reported per nursing. D/C home per [facility] Criteria: Yes CAROLINE BUTLER CRNA Feb 11, 2021 14:52
[2021-02-11] MEDS ORDERED: HYDROmorphone 2 MG/ML VIAL (DILAUDID) IV ONE (15:00)
--- NOTE | 2021-02-11 15:08 | Progress Note-Post Operative ---
Post-Operative Progess Note Surgeon (s)/Epitaxial Reactor Technician (s) Surgeon ISELA CANTOR MD Epitaxial Reactor Technician: joel mai APRN Pre-Operative Diagnosis right inguinal hernia, weight loss Post-Operative Diagnosis right direct inguinal hernia. reflux esophagitis(stage 2), small HH(2cm), moderate-severe gastritis, mild chronic stage 2 ext and int hemorrhoids. Procedure & Operative Findings Date of Procedure 02/11/21 Procedure Performed/Findings laparoscopic right inguinal hernia repair with mesh. EGD with bx. Colonscopy. Anesthesia Type get Estimated Blood Loss Estimated blood loss (mL): minimal Specimens/Packing Specimens Removed ge jxn, antrum ISELA CANTOR MD Feb 11, 2021 15:08
--- NOTE | 2021-02-11 18:12 | OPERATIVE REPORT ---
DATE OF SERVICE: 02/11/2021 ATTENDING PHYSICIAN: Rohit Aj MD PREOPERATIVE DIAGNOSIS: Symptomatic reducible right inguinal hernia, weight loss. POSTOPERATIVE DIAGNOSES: Reducible right direct inguinal hernia, reflux esophagitis stage II, small hiatal hernia 2 cm in size, moderate to severe gastritis, chronic stage II external and internal hemorrhoids. PROCEDURE: Laparoscopic right inguinal hernia repair with mesh. EGD with biopsy, colonoscopy. SURGEON: Isela Solano MD BATCH DUMPER: Melissa Mathews APRN. ANESTHESIA: General endotracheal. ESTIMATED BLOOD LOSS: Minimal. FINDINGS: Reducible right direct inguinal hernia, reflux esophagitis stage II, small hiatal hernia 2 cm in size, moderate to severe gastritis, chronic stage II external and internal hemorrhoids. DISPOSITION: The patient tolerated the procedure well. INDICATIONS: The patient is a 75-year-old male who has developed pain in the right inguinal region, which was a sharp sensation on an intermittent basis; however, this has gotten worse. He also reports feeling a bulge after being examined by a physician. When he was seen in the office, he was found to have a reducible right inguinal hernia, which was reducible; however, tender to palpation. He also reported issues with weight loss. He and his did start to eat healthier for weight loss purposes; however, he has lost approximately 25 pounds. 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 Since this increased stress he has had decreased appetite as well. His last colonoscopy was greater than 10 years ago. He does report constipation. He does not report any bright red blood per rectum nor any dark tarry stools as well as no family history of colon cancer. DESCRIPTION OF PROCEDURE: The patient was brought to the operating room, laid supine on the table. After adequate IV pain and sedative medications and general endotracheal intubation, the abdomen was prepped and draped in standard surgical fashion. A 0.5% Marcaine with epinephrine was used to anesthetize the overlying skin in the infraumbilical rim and a crescent shaped skin incision made using a 15 blade. A sharp towel clamp was used to retract the abdominal wall anteriorly and a Veress needle inserted with a low opening pressure of 0 mmHg and the abdomen was then insufflated to 15 mmHg pressure. The Veress needle removed and a 10 mm XL trocar placed followed by a 10 mm 45-degree angle laparoscope was visualized in the peritoneal cavity. A 4-quadrant abdominal exploration was performed. A right direct inguinal hernia was identified. There was no left inguinal hernia component that was visualized of the small bowel and colon appeared normal. Under direct visualization, we then proceed to place bilateral 5 mm ports after the skin and peritoneal lining were anesthetized using 0.5% Marcaine with epinephrine and transverse skin incision was made using 15 blade. The patient was then placed in Trendelenburg position. The peritoneal lining was then opened towards the conjoined tendon and inguinal ligament laterally and then we proceeded medially until Den's ligament was reached. We then proceeded with inferior dissection encompassing the entire hernia sac. Good hemostasis was observed. A medium size 3DMax polypropylene mesh was then placed through the 10 mm port site and tacked to Den's ligament medially and conjoined tendon laterally with absorbable tacks. The peritoneal lining was then placed over the mesh and a few tacks placed to hold this in place with visualization of good hemostasis. A 10 mm port site fascia and peritoneum were then closed under direct visualization using a Bradley-Salma device and 0 Vicryl suture. The abdomen was then desufflated and remaining ports removed. All skin incisions were closed using 4-0 Monocryl running subcuticular sutures. Wounds were then cleaned and covered with Dermabond. The mouthpiece was applied. The endoscope was placed in the mouth, visualizing the pharynx and hypopharyngeal region. Vocal cords, epiglottis and vallecula identified and appeared to be normal. The endoscope was then gently abated esophageal opening and esophagus insufflated. The endoscope was then advanced to the first, second and third portion of esophagus at the level of the GE junction, reflux esophagitis stage II identified. No ulcers or strictures identified in this region. A biopsy was taken with forceps with visualization of good hemostasis. The endoscope was then advanced in the stomach and endoscope retroflexed, visualizing a small hiatal hernia approximately 2 cm in size. There was a moderate to severe gastritis more towards the stomach antrum; however, no formal ulcerations. A biopsy was taken to rule out H. pylori with visualization of good hemostasis. The endoscope was then advanced to the pylorus and the first and second portion of the duodenum, which appeared normal with no ulcerations or any distal obstructions. The endoscope was then slowly withdrawn while taking a second look and suctioning of residual air with no additional findings. A digital rectal examination was then performed and chronic stage II external and internal hemorrhoids were identified, which were not actively edematous nor inflamed and no bleeding. Normal sphincter tone was felt and there were no palpable masses. Prostate gland was palpable and appeared normal. The endoscope was then intubated and anus and rectum gently insufflated. The endoscope was then advanced through the valves of [place] of the rectum with no polyps or any neoplasms identified. We then proceeded through the sigmoid colon where no diverticulosis identified. The endoscope was then advanced to the remainder of the descending, transverse and ascending colon to the cecum. These segments were normal. There were no polyps or any neoplasms identified throughout the colon or rectum. The endoscope was then slowly withdrawn while taking a second look and suctioning of residual air with no additional findings. The patient tolerated the procedure well. We will start IV normal pain medication as well as a clear liquid diet. Once he is tolerating clears, has good pain control with oral pain medications, ambulating well, we will discharge him home. We will also start him on Protonix 40 mg daily as well as taking small and more frequent meals, avoidance of eating at night as well as head elevation while lying supine. He also needs to avoid caffeinated beverages, spicy, greasy and acidic foods. For his constipation, we will recommend adding a fiber supplement, which should equal or exceed 30 grams daily as well as significant amounts of water until he reaches a point where he has a soft bowel movement at least once a day. We will have him follow up in my office in 2 weeks. Job ID: [id number] DocumentID: [id number] Dictated Date: 02/11/2021 15:17:05 Bilingual Legal Assistant Date: 02/11/2021 18:11:41 Dictated By: ISELA SOLANO MD
== END 2021-02-11 16:45 | disposition home or self-care (01) ==
LOC: SDC 10:13
PROVIDERS: ATTEND Surgery
DX: K29.70 Gastritis, unspecified, without bleeding (principal); B96.81 Helicobacter pylori [H. pylori] as the cause of diseases classified elsewhere; K21.00 Gastro-esophageal reflux disease with esophagitis, without bleeding; K59.00 Constipation, unspecified; K40.90 Unilateral inguinal hernia, without obstruction or gangrene, not specified as recurrent; K44.9 Diaphragmatic hernia without obstruction or gangrene; K64.1 Second degree hemorrhoids; I10 Essential (primary) hypertension; N40.0 Benign prostatic hyperplasia without lower urinary tract symptoms; E78.00 Pure hypercholesterolemia, unspecified; M47.9 Spondylosis, unspecified; Z91.040 Latex allergy status; Z79.899 Other long term (current) drug therapy; Z87.19 Personal history of other diseases of the digestive system; Z79.51 Long term (current) use of inhaled steroids; Z87.442 Personal history of urinary calculi
CPT/HCPCS: 43239; 45378; 49650; 85025; 87081; 88305; C1781; 36415

== ENCOUNTER → 2023-04-05 | Outpatient (CLI) | payer MEDICARE, OTHER ==
[~2023-04-05] MED LIST changes: -BETH25TA PO; +BETH25TA2 PO; +HYDR-3817 PO; +TIZA-186 PO; -TIZA4TAB4 PO
--- NOTE | 2023-04-05 14:39 | Diagnostic Imaging Report ---
EXAMINATION: Left shoulder MRI without contrast, 04/05/2023. TECHNIQUE: Multiplanar, multisequence [id number] MRI of the left upper extremity was accomplished. INDICATION: Recent fall, pain. FINDINGS: The subscapularis tendon demonstrates findings of tendinosis. Long head of the biceps tendon lies in the bicipital groove. It contains mild internal high signal consistent with an intrasubstance tear. There is no discontinuity with the biceps tendon anchor intact. The labrum is grossly intact on this noncontrast examination. Tiny cystic collection, however, is seen anterior to the glenoid with a small paralabral cyst possible. There is a full-thickness retracted tear of the far anterior supraspinatus tendon with retraction of approximately 1.5 cm. The remaining supraspinatus tendon is intact. Infraspinatus tendon demonstrates a small partial articular-sided tear near the musculotendinous junction. There is narrowing and spurring at the acromioclavicular joint. Muscle volume is preserved. Visualized axilla is unremarkable. IMPRESSION: 1. Intrasubstance partial tear of the long head of the biceps tendon without discontinuity. 2. Cystic area abutting the anterior glenoid, possibly a paralabral cyst. If there are symptoms suggestive of a labral tear, post-arthrogram imaging could provide further characterization. 3. Full-thickness tear of the anterior supraspinatus tendon with a partial articular-sided tear of the infraspinatus tendon. Subscapularis tendon is intact with tendinosis noted. Dictated by: Dictated on workstation # [id number]
== END ==
LOC: RAD 12:43
PROVIDERS: ATTEND Nurse Practitioner Family
DX: S46.112A Strain of muscle, fascia and tendon of long head of biceps, left arm, initial encounter (principal); M75.122 Complete rotator cuff tear or rupture of left shoulder, not specified as traumatic; R22.32 Localized swelling, mass and lump, left upper limb; M62.81 Muscle weakness (generalized); N40.0 Benign prostatic hyperplasia without lower urinary tract symptoms; I10 Essential (primary) hypertension; E87.5 Hyperkalemia; E78.49 Other hyperlipidemia; M85.612 Other cyst of bone, left shoulder; X58.XXXA Exposure to other specified factors, initial encounter
CPT/HCPCS: 73221